=== PATIENT | female | born 1990 | race Caucasian/White ===

== ENCOUNTER 2025-07-16 18:22 | Emergency (ER) | payer BC, OTHER ==
[2025-07-16] MEDS ORDERED: MELOXICAM15 MG PO (18:29)
[2025-07-16] MEDS ORDERED: Acetaminophen/Oxycodone 5 MG/325 MG TABLET PO ONE (18:30)
[2025-07-17] MEDS ORDERED: MELOXICAM10 MG PO (09:16)
== END 2025-07-16 19:22 | disposition home or self-care (01) ==
LOC: ED 18:22
DX: S09.90XA Unspecified injury of head, initial encounter (principal); M54.2 Cervicalgia; M25.511 Pain in right shoulder; V49.9XXA Car occupant (driver) (passenger) injured in unspecified traffic accident, initial encounter; Y93.89 Activity, other specified; Y92.488 Other paved roadways as the place of occurrence of the external cause; Y99.8 Other external cause status